=== PATIENT | female | born 1995 | race Caucasian/White ===

== ENCOUNTER 2018-01-02 12:16 | Outpatient (CLI) | payer BC ==
[2018-01-02 14:50] LABS: RUPTURE FETAL MEMBRANES NEGATIVE (NEGATIVE)
== END 2018-01-02 15:15 | disposition home or self-care (01) ==
LOC: OBT 12:16 → L-D 12:18 → OBT 15:15
DX: O41.03X0 Oligohydramnios, third trimester, not applicable or unspecified (principal); Z3A.37 37 weeks gestation of pregnancy
CPT/HCPCS: 76818; 84112

== ENCOUNTER 2018-01-04 10:21 | Inpatient (IN) | payer BC ==
[2018-01-04] MEDS ORDERED: MISOPROSTOL 200 MCG TAB PR (12:30)
[2018-01-04] MEDS ORDERED: CARBOPROST 250 MCG INJ IM (12:30)
[2018-01-04] MEDS ORDERED: LIDOCAINE 1% (MPF) 30 ML INJ INJ (12:30)
[2018-01-04] MEDS ORDERED: METHYLERGONOVINE 0.2 MG INJ IM (12:30)
[2018-01-04] MEDS ORDERED: BUTORPHANOL 2 MG INJ IV (12:30)
[2018-01-04] MEDS ORDERED: OXYTOCIN 30 UNITS/LR 500 ML IV (12:30)
[2018-01-04] MEDS: CLINDAMYCIN 900 MG/D5W (PMX) 50 ML IV ×2 (13:40→22:01)
[2018-01-04] MEDS: LACTATED RINGER'S 1,000 ML IV ×2 (13:40→17:05)
[2018-01-04 13:57] LABS: ADD MAN DIFF? NO
[2018-01-04 13:59] LABS: WHITE BLOOD COUNT 12.6 10^3/ul (4.8-10.8)
[2018-01-04 13:59] LABS: BASOPHILS % 0.2 % (0.0-2.0); EOSINOPHILS # 0.1 10^3/ul (0.0-0.5); EOSINOPHILS % 0.7 % (0.0-7.0); HEMATOCRIT 34.8 % (37.0-47.0); HEMOGLOBIN 11.6 g/dl (12.0-16.0); LYMPHOCYTES # 2.2 10^3/ul (0.8-2.9); LYMPHOCYTES % 17.6 % (18.0-55.0); MEAN CORPUSCULAR HEMOGLOBIN 27.7 pg (29.0-33.0); MEAN CORPUSCULAR HGB CONC 33.3 g/dl (32.0-37.0); MEAN CORPUSCULAR VOLUME 83.1 fl (72.0-104.0); MEAN PLATELET VOLUME 9.5 fl (7.4-10.4); MONOCYTE # 0.8 10^3/ul (0.3-0.9); MONOCYTES % 6.6 % (0.0-13.0); NEUTROPHIL # 9.4 10^3/ul (1.6-7.5); NEUTROPHILS % 74.1 % (30.0-74.0); PLATELET COUNT 349 10^3/UL (140-415); RED BLOOD COUNT 4.19 10^6/ul (4.20-5.40); RED CELL DISTRIBUTION WIDTH 13.1 % (11.5-14.5)
[2018-01-04 14:27] LABS: INR 0.93; PROTIME 12.5 Sec (11.9-14.9)
[2018-01-04 14:28] LABS: PARTIAL THROMBOPLASTIN TIME 26.3 Sec (25.0-35.0)
[2018-01-04] MEDS: DINOPROSTONE 10 MG VAG SUPP VAG (14:55)
[2018-01-04] MEDS ORDERED: MINERAL OIL LIGHT 10 ML VIAL TOP (20:00)
[2018-01-04 21:18] LABS: HEPATITIS B SURFACE ANTIGEN NEGATIVE (NEGATIVE)
[2018-01-04 21:41] LABS: RAPID PLASMA REAGIN NONREACTIVE (NR)
[2018-01-05] MEDS: LACTATED RINGER'S 1,000 ML IV ×5 (01:24→22:09)
[2018-01-05] MEDS: DINOPROSTONE 10 MG VAG SUPP VAG (05:06)
[2018-01-05] MEDS: CLINDAMYCIN 900 MG/D5W (PMX) 50 ML IV ×3 (06:11→21:30)
[2018-01-05] MEDS: BUTORPHANOL 2 MG INJ IV ×2 (07:22→15:52)
[2018-01-05] MEDS ORDERED: FENTAnyl 2MCG/ML-ROPIV 0.2% 100 ML (17:08)
[2018-01-05] MEDS ORDERED: NALOXONE (0.4 MG/ML) INJ IV (17:30)
[2018-01-05] MEDS ORDERED: DIPHENHYDRAMINE 50 MG INJ IV (17:30)
[2018-01-05] MEDS ORDERED: ONDANSETRON 4 MG INJ IV (17:30)
[2018-01-05] MEDS: ONDANSETRON 4 MG INJ IV (18:57)
[2018-01-06] MEDS: FENTAnyl 2MCG/ML-ROPIV 0.2% 100 ML BAG EPI (02:38)
[2018-01-06] MEDS: OXYTOCIN 30 UNITS/LR 500 ML IV ×3 (04:13→16:00)
[2018-01-06] MEDS: CLINDAMYCIN 900 MG/D5W (PMX) 50 ML IV (05:36)
[2018-01-06] MEDS: LACTATED RINGER'S 1,000 ML IV (06:35)
[2018-01-06] MEDS: ONDANSETRON 4 MG INJ IV (06:40)
[2018-01-06] MEDS: MINERAL OIL LIGHT 10 ML VIAL TOP (08:20)
[2018-01-06] MEDS ORDERED: ZOLPIDEM 5 MG TAB PO (11:00)
[2018-01-06] MEDS ORDERED: MISOPROSTOL 200 MCG TAB PR (11:00)
[2018-01-06] MEDS ORDERED: CARBOPROST 250 MCG INJ IM (11:00)
[2018-01-06] MEDS ORDERED: OXYCODONE/ASPIRIN (4.88/325) TAB PO (11:00)
[2018-01-06] MEDS: SENNA/DOCUSATE NA (8.6MG/50MG) TAB PO ×2 (11:00→21:11)
[2018-01-06] MEDS ORDERED: METHYLERGONOVINE 0.2 MG INJ IM (11:00)
[2018-01-06] MEDS ORDERED: OXYTOCIN 30 UNITS/LR 500 ML IV (11:00)
[2018-01-06] MEDS: BENZOCAINE 20% 56 ML SPRAY TOP (12:29)
[2018-01-06] MEDS: WITCH HAZEL/GLYCERIN PAD PR (12:29)
[2018-01-06] MEDS: IBUPROFEN 600 MG TAB PO ×2 (12:29→17:27)
[2018-01-06] MEDS: LANOLIN 7 GM TUBE TOP (12:30)
[2018-01-06] MEDS: OXYCODONE/ASPIRIN (4.88/325) TAB PO (15:57)
[2018-01-07] MEDS: IBUPROFEN 600 MG TAB PO ×5 (06:00→23:33)
[2018-01-07 09:37] LABS: ADD MAN DIFF? NO
[2018-01-07 09:46] LABS: WHITE BLOOD COUNT 15.4 10^3/ul (4.8-10.8)
[2018-01-07 09:46] LABS: BASOPHILS % 0.3 % (0.0-2.0); EOSINOPHILS # 0.2 10^3/ul (0.0-0.5); EOSINOPHILS % 1.6 % (0.0-7.0); LYMPHOCYTES # 2.7 10^3/ul (0.8-2.9); LYMPHOCYTES % 17.4 % (18.0-55.0); MEAN CORPUSCULAR HEMOGLOBIN 27.6 pg (29.0-33.0); MEAN CORPUSCULAR HGB CONC 33.3 g/dl (32.0-37.0); MEAN CORPUSCULAR VOLUME 82.7 fl (72.0-104.0); MEAN PLATELET VOLUME 9.6 fl (7.4-10.4); MONOCYTE # 1.1 10^3/ul (0.3-0.9); MONOCYTES % 7.2 % (0.0-13.0); NEUTROPHIL # 11.3 10^3/ul (1.6-7.5); PLATELET COUNT 301 10^3/UL (140-415); RED BLOOD COUNT 3.99 10^6/ul (4.20-5.40); RED CELL DISTRIBUTION WIDTH 13.1 % (11.5-14.5)
[2018-01-07] MEDS: SENNA/DOCUSATE NA (8.6MG/50MG) TAB PO ×2 (10:00→21:00)
[2018-01-07] MEDS: INFLUENZA VIRUS VACCINE 0.5 ML (DISPENSING) IM* (15:16)
[2018-01-08] MEDS: IBUPROFEN 600 MG TAB PO ×2 (05:35→11:42)
[2018-01-08] MEDS: SENNA/DOCUSATE NA (8.6MG/50MG) TAB PO (09:12)
[2018-01-08] MEDS: DIPHTH/TET/ACEL PERTUSS (ADULT) 0.5 ML VIAL IM* (11:43)
== END 2018-01-08 15:08 | disposition home or self-care (01) | DRG 775 ==
LOC: OBT 10:21 → PP1 01-06 10:08 → L-D 10:21 → OBT 12:10 → L-D 12:29
PROVIDERS: Obstetrics & Gynecology
PROC: 10E0XZZ Delivery of Products of Conception, External Approach (ICD-10-PCS; principal; 2018-01-06)
PROC: 0UQGXZZ Repair Vagina, External Approach (ICD-10-PCS; 2018-01-06)
PROC: 3E033VJ Introduction of Other Hormone into Peripheral Vein, Percutaneous Approach (ICD-10-PCS; 2018-01-06)
DX: O41.03X0 Oligohydramnios, third trimester, not applicable or unspecified (principal); O71.4 Obstetric high vaginal laceration alone; O99.62 Diseases of the digestive system complicating childbirth; Z68.54 Body mass index [BMI] pediatric, 95th percentile for age to less than 120% of the 95th percentile for age; O99.214 Obesity complicating childbirth; E66.01 Morbid (severe) obesity due to excess calories; O69.81X0 Labor and delivery complicated by cord around neck, without compression, not applicable or unspecified; Z3A.37 37 weeks gestation of pregnancy; Z37.0 Single live birth
CPT/HCPCS: 62319; 76815; 76818; 85025; 85610; 85730; 86592; 86900; 86901; 87340; 90686; 90715